=== PATIENT | male | born 1955 | race Hispanic/Latino ===

== ENCOUNTER 2018-02-23 06:32 | Outpatient (CLI) | payer MEDICARE ==
--- NOTE | 2018-02-23 08:17 | ULT ---
ABDOMINAL AORTIC ULTRASOUND: 02/23/2018 HISTORY: Abdominal bruit. Assess for abdominal aortic aneurysm. COMPARISON: None. TECHNIQUE: Multiplanar barr-scale sonographic imaging of the abdominal aorta obtained. Images include color-jose a w and spectral analysis. FINDINGS: The proximal abdominal aorta measures 1.8 x 1.6 cm. The mid abdominal aorta measures 1.6 x 1.7 cm. The distal abdominal aorta measures 1.4 x 1.6 cm. The common iliac arteries demonstrate a normal abdulkadir earance as well. IMPRESSION: The visualized portions of the abdominal aorta demonstrate normal caliber. No sonographic evidence o f abdominal aortic aneurysm. POS: [facility]
== END 2018-02-23 06:33 | disposition home or self-care (01) ==
LOC: BICULT 06:32
PROVIDERS: ATTEND Internal Medicine
DX: R09.89 Other specified symptoms and signs involving the circulatory and respiratory systems (principal)
CPT/HCPCS: 76706